=== PATIENT | female | born 2000 | race American Indian/Alaskan Native ===

== ENCOUNTER 2023-05-20 07:51 | Emergency (ER) | payer BC, MEDICAID ==
[~2023-05-20] VITALS: Ht 160 cm; Wt 63.0 kg
[2023-05-20 08:37] LABS: BASOPHILS ABSOLUTE AUTO 0.05 K/mm3 (0.00-0.23); BASOPHILS PERCENT AUTO 1 % (0-2); EOSINOPHILS ABSOLUTE AUTO 0.96 K/mm3 (0.00-0.68); EOSINOPHILS PERCENT AUTO 11 % (0-6); Hematocrit 38.2 % (33.0-51.0); Hemoglobin 12.5 g/dL (11.5-16.0); IMMATURE GRAN ABSOLUTE AUTO 0.01 K/mm3 (0.00-0.10); IMMATURE GRAN PERCENT AUTO 0 % (0-1); LYMPHOCYTES ABSOLUTE AUTO 2.21 K/mm3 (0.84-5.20); LYMPHOCYTES PERCENT AUTO 25 % (21-46); MONOCYTES ABSOLUTE AUTO 0.66 K/mm3 (0.16-1.47); MONOCYTES PERCENT AUTO 8 % (4-13); Mean Corpuscular HGB 29.1 pg (26.0-34.0); Mean Corpuscular HGB Conc 32.7 g/dL (31.5-36.5); Mean Corpuscular Volume 89 fL (80-100); Mean Platelet Volume 9.7 fL (9.1-12.4); NEUTROPHILS ABSOLUTE AUTO 4.82 K/mm3 (1.96-9.15); NEUTROPHILS PERCENT AUTO 55 % (41-73); Platelet Count 459 K/mm3 (150-400); RDW Coefficient Variation 12.8 % (11.7-14.2); RDW Standard Deviation 41.2 fL (35.1-46.3); Red Blood Cell Count 4.29 M/mm3 (3.80-5.20); White Blood Cell Count 8.71 K/mm3 (4.00-11.30)
[2023-05-20 08:44] LABS: Bun/Creatinine Ratio 17.7 (12.0-20.0); Calcium, Blood 8.9 mg/dL (8.5-10.1); Creatinine, Blood 0.68 mg/dL (0.40-1.00); Potassium, Blood 3.3 mmol/L (3.5-5.5)
[2023-05-20] MEDS ORDERED: PRAZ1 PO (08:56)
[2023-05-20] MEDS ORDERED: MIRT15 PO (08:56)
[2023-05-20] MEDS ORDERED: HYDHCL25 PO (08:57)
[2023-05-20] MEDS ORDERED: GABA300 PO (08:57)
[2023-05-20] MEDS ORDERED: MONT10T PO (08:58)
[2023-05-20] MEDS ORDERED: ATROVENT HFA12.9 GM INH (08:58)
[2023-05-20] MEDS ORDERED: ALBU90OI INH (08:58)
[2023-05-20] MEDS ORDERED: PRED20 PO (11:14)
[2023-05-20] MEDS ORDERED: BENZ100A PO (11:14)
[2023-05-20] MEDS ORDERED: AZIT250 PO (11:19)
[2023-05-20 11:32] VITALS: BP 109/72
== END 2023-05-20 11:46 | disposition home or self-care (01) ==
LOC: EDBD 07:51 → ER 07:51
PROVIDERS: Emergency Medicine
DX: J45.901 Unspecified asthma with (acute) exacerbation (principal); M79.10 Myalgia, unspecified site; E87.6 Hypokalemia; Z79.899 Other long term (current) drug therapy; Z88.1 Allergy status to other antibiotic agents; Z88.2 Allergy status to sulfonamides; Z88.6 Allergy status to analgesic agent; Z88.7 Allergy status to serum and vaccine; Z88.8 Allergy status to other drugs, medicaments and biological substances
CPT/HCPCS: 71045; 80048; 85025; 94640; 94644; 94664; 96365; 96375; 99285-25; A9270; J1100; J1885; J2060; J2405; J2930; J3475

== ENCOUNTER 2023-08-08 04:23 | Emergency (ER) | payer BC, MEDICAID ==
[~2023-08-08] VITALS: Ht 160 cm; Wt 61.2 kg
[~2023-08-08 04:23] MED LIST: ALBU90OI INH; ATROVENT HFA12.9 GM INH; AZIT250 PO; BENZ100A PO; GABA300 PO; HYDHCL25 PO; MIRT15 PO; MONT10T PO; PRAZ1 PO; PRED20 PO
[2023-08-08] MEDS ORDERED: DiphenhydrAMINE HCl 50 MG/ML 1ML Vial IV ONE (05:15)
[2023-08-08] MEDS ORDERED: NS 1,000 ML IV SCH (05:15)
[2023-08-08] MEDS ORDERED: Prochlorperazine Edisylate 10 mg Vial IV ONE (05:15)
[2023-08-08 05:26] LABS: BASOPHILS ABSOLUTE AUTO 0.04 K/mm3 (0.00-0.23); BASOPHILS PERCENT AUTO 1 % (0-2); EOSINOPHILS ABSOLUTE AUTO 0.83 K/mm3 (0.00-0.68); EOSINOPHILS PERCENT AUTO 10 % (0-6); Hematocrit 41.5 % (33.0-51.0); Hemoglobin 13.9 g/dL (11.5-16.0); IMMATURE GRAN ABSOLUTE AUTO 0.01 K/mm3 (0.00-0.10); IMMATURE GRAN PERCENT AUTO 0 % (0-1); LYMPHOCYTES ABSOLUTE AUTO 1.62 K/mm3 (0.84-5.20); LYMPHOCYTES PERCENT AUTO 20 % (21-46); MONOCYTES PERCENT AUTO 7 % (4-13); Mean Corpuscular HGB 28.6 pg (26.0-34.0); Mean Corpuscular HGB Conc 33.5 g/dL (31.5-36.5); Mean Corpuscular Volume 85 fL (80-100); Mean Platelet Volume 9.7 fL (9.1-12.4); NEUTROPHILS ABSOLUTE AUTO 5.07 K/mm3 (1.96-9.15); NEUTROPHILS PERCENT AUTO 62 % (41-73); Platelet Count 406 K/mm3 (150-400); RDW Coefficient Variation 11.9 % (11.7-14.2); RDW Standard Deviation 37.1 fL (35.1-46.3); Red Blood Cell Count 4.86 M/mm3 (3.80-5.20); White Blood Cell Count 8.17 K/mm3 (4.00-11.30)
[2023-08-08 05:40] LABS: Albumin, Blood 4.2 g/dL (3.4-5.0); Albumin/Globulin Ratio 1.1 (0.8-1.8); Bilirubin, Total 0.5 mg/dL (0.1-1.0); Bun/Creatinine Ratio 16.5 (12.0-20.0); Calcium, Blood 9.6 mg/dL (8.5-10.1); Creatinine, Blood 0.85 mg/dL (0.40-1.00); Globulin, Blood 3.7 g/dL (2.2-4.0); Potassium, Blood 4.2 mmol/L (3.5-5.5); Total Protein, Blood 7.9 g/dL (6.4-8.2)
[2023-08-08] MEDS ORDERED: LORazepam 2 MG/ML 1ML Injection IV ONE (05:55)
[2023-08-08] MEDS ORDERED: FentaNYL Citrate 50 MCG/ML 2 ML Injection IV ONE (05:55)
[2023-08-08 06:36] LABS: International Normalized Ratio 1.03; Prothrombin Time Results 10.8 Sec (9.7-11.5)
[2023-08-08 08:00] VITALS: BP 111/66
== END 2023-08-08 09:14 | disposition home or self-care (01) ==
LOC: ER 04:23
PROVIDERS: Emergency Medicine
DX: R10.13 Epigastric pain (principal); R11.2 Nausea with vomiting, unspecified; E86.0 Dehydration; J45.909 Unspecified asthma, uncomplicated; Z79.899 Other long term (current) drug therapy; Z79.52 Long term (current) use of systemic steroids; Z88.1 Allergy status to other antibiotic agents; Z88.2 Allergy status to sulfonamides; Z88.7 Allergy status to serum and vaccine; Z88.8 Allergy status to other drugs, medicaments and biological substances
CPT/HCPCS: 74174; 80053; 84703; 85025; 85610; 85730; 96361; 96374-59; 96375-59; 99284-25; J0780; J1200; J2060; J3010; J7030; Q9967

== ENCOUNTER 2023-08-19 00:07 | Emergency (ER) | payer BC, OTHER ==
[~2023-08-19] VITALS: Ht 160 cm; Wt 59.0 kg
[2023-08-19] MEDS ORDERED: CYCLOBENZAPRINE5 MG (00:46)
[2023-08-19 00:48] LABS: BASOPHILS ABSOLUTE AUTO 0.05 K/mm3 (0.00-0.23); BASOPHILS PERCENT AUTO 1 % (0-2); EOSINOPHILS ABSOLUTE AUTO 0.72 K/mm3 (0.00-0.68); EOSINOPHILS PERCENT AUTO 9 % (0-6); Hematocrit 42.7 % (33.0-51.0); Hemoglobin 14.6 g/dL (11.5-16.0); IMMATURE GRAN ABSOLUTE AUTO 0.01 K/mm3 (0.00-0.10); IMMATURE GRAN PERCENT AUTO 0 % (0-1); LYMPHOCYTES ABSOLUTE AUTO 1.78 K/mm3 (0.84-5.20); LYMPHOCYTES PERCENT AUTO 23 % (21-46); MONOCYTES ABSOLUTE AUTO 0.44 K/mm3 (0.16-1.47); MONOCYTES PERCENT AUTO 6 % (4-13); Mean Corpuscular HGB 28.7 pg (26.0-34.0); Mean Corpuscular HGB Conc 34.2 g/dL (31.5-36.5); Mean Corpuscular Volume 84 fL (80-100); Mean Platelet Volume 9.7 fL (9.1-12.4); NEUTROPHILS ABSOLUTE AUTO 4.75 K/mm3 (1.96-9.15); NEUTROPHILS PERCENT AUTO 61 % (41-73); Platelet Count 441 K/mm3 (150-400); RDW Coefficient Variation 11.9 % (11.7-14.2); RDW Standard Deviation 36.2 fL (35.1-46.3); Red Blood Cell Count 5.09 M/mm3 (3.80-5.20); White Blood Cell Count 7.75 K/mm3 (4.00-11.30)
[2023-08-19] MEDS ORDERED: Droperidol 5 mg/2 ml Vial IV ONE (01:00)
[2023-08-19] MEDS ORDERED: MAGNESIUM SULFATE IV SCH (01:00)
[2023-08-19] MEDS ORDERED: Midazolam HCl 1MG / ML 2ML Vial IV ONE (01:00)
[2023-08-19] MEDS ORDERED: Ipratropium Bromide INH 0.02% 0.5 mg/2.5ML Vial INH SCH (01:05)
[2023-08-19] MEDS ORDERED: Albuterol 2.5 MG/3 ML VIAL INH SCH ×2 (01:05→01:10)
[2023-08-19] MEDS ORDERED: Lactated Ringer's 1,000 ML IV ONE (01:05)
[2023-08-19 01:09] LABS: Albumin, Blood 4.6 g/dL (3.4-5.0); Albumin/Globulin Ratio 1.4 (0.8-1.8); Bilirubin, Total 0.5 mg/dL (0.1-1.0); Bun/Creatinine Ratio 10.4 (12.0-20.0); Calcium, Blood 9.5 mg/dL (8.5-10.1); Creatinine, Blood 0.67 mg/dL (0.40-1.00); Globulin, Blood 3.4 g/dL (2.2-4.0); Potassium, Blood 3.6 mmol/L (3.5-5.5)
[2023-08-19] MEDS ORDERED: Magnesium Sulf 2 GM/Water 50ML 50 ML IV ONE (01:10)
[2023-08-19 01:42] LABS: Base Excess Venous -5.1 mmol/L; Bicarbonate Venous 20.7 mmol/L (24.0-30.0); pH Blood Venous 7.39 (7.34-7.37)
[2023-08-19 02:48] LABS: Influenza A Negative (NEGATIVE); Influenza B Negative (NEGATIVE)
[2023-08-19 02:57] LABS: SARS-Cov-2 (COVID-19) PCR, MMC NEGATIVE (NEGATIVE)
[2023-08-19 03:00] VITALS: BP 131/73
[2023-08-19] MEDS ORDERED: PRED20 PO (03:00)
== END 2023-08-19 03:13 | disposition home or self-care (01) ==
LOC: ER 00:07
PROVIDERS: Emergency Medicine
DX: J45.901 Unspecified asthma with (acute) exacerbation (principal); F43.10 Post-traumatic stress disorder, unspecified; G43.909 Migraine, unspecified, not intractable, without status migrainosus
CPT/HCPCS: 71046; 80053; 82803; 85025; 87804; 87807; 93005; 93010; 94644; 94645; 94664; 96365; 96375; 99285-25; J1790; J2250; J3475; J7120; U0002

== ENCOUNTER 2023-08-21 22:37 | Emergency (ER) | payer BC, MEDICAID ==
[~2023-08-21] VITALS: Ht 160 cm; Wt 59.0 kg
[~2023-08-21 22:37] MED LIST changes: +CYCLOBENZAPRINE5 MG
[2023-08-21 22:51] VITALS: BP 132/92
== END 2023-08-22 00:53 | disposition home or self-care (01) ==
LOC: ER 22:37
DX: S61.211A Laceration without foreign body of left index finger without damage to nail, initial encounter (principal); J45.909 Unspecified asthma, uncomplicated; F43.10 Post-traumatic stress disorder, unspecified; G43.909 Migraine, unspecified, not intractable, without status migrainosus; Z79.899 Other long term (current) drug therapy; Z79.52 Long term (current) use of systemic steroids; Z88.1 Allergy status to other antibiotic agents; Z88.2 Allergy status to sulfonamides; Z88.7 Allergy status to serum and vaccine; Z88.8 Allergy status to other drugs, medicaments and biological substances; W26.0XXA Contact with knife, initial encounter
CPT/HCPCS: 12001; 99282-25

== ENCOUNTER 2023-11-10 20:32 | Observation (INO) | payer BC, MEDICAID ==
[~2023-11-10] VITALS: Ht 160 cm; Wt 55.4 kg
[2023-11-11 07:27] VITALS: BP 121/87
== END 2023-11-11 13:00 | disposition home or self-care (01) ==
LOC: ER 20:32 → PCU 20:33
PROVIDERS: ADMIT Student in an Organized Health Care Education/Training Program
DX: J45.901 Unspecified asthma with (acute) exacerbation (principal); K31.84 Gastroparesis; G89.4 Chronic pain syndrome; F43.10 Post-traumatic stress disorder, unspecified; G43.909 Migraine, unspecified, not intractable, without status migrainosus; J96.02 Acute respiratory failure with hypercapnia; G40.909 Epilepsy, unspecified, not intractable, without status epilepticus; Z88.5 Allergy status to narcotic agent; Z88.8 Allergy status to other drugs, medicaments and biological substances; Z88.2 Allergy status to sulfonamides; Z79.899 Other long term (current) drug therapy

== ENCOUNTER 2023-12-24 01:27 | Emergency (ER) | payer BC ==
[~2023-12-24] VITALS: Ht 162.6 cm; Wt 61.2 kg
[~2023-12-24 01:27] MED LIST changes: +ALPR.25 PO; +Celexa20 MG PO; +DELTASONE20 MG PO; +FLUTICASONE-SA1 EAC1 INH; +LEVE500 PO; +NYSTATIN100000 U10 MT; +PANT40 PO
[2023-12-24] MEDS ORDERED: Ipratropium/Albuterol SulF 2.5-0.5MG/3 ML Amp INH ONE (02:00)
[2023-12-24 02:17] LABS: BASOPHILS ABSOLUTE AUTO 0.05 K/mm3 (0.00-0.23); BASOPHILS PERCENT AUTO 0 % (0-2); EOSINOPHILS ABSOLUTE AUTO 0.65 K/mm3 (0.00-0.68); EOSINOPHILS PERCENT AUTO 6 % (0-6); Hematocrit 37.3 % (33.0-51.0); Hemoglobin 12.6 g/dL (11.5-16.0); IMMATURE GRAN ABSOLUTE AUTO 0.04 K/mm3 (0.00-0.10); IMMATURE GRAN PERCENT AUTO 0 % (0-1); LYMPHOCYTES PERCENT AUTO 18 % (21-46); MONOCYTES ABSOLUTE AUTO 1.17 K/mm3 (0.16-1.47); MONOCYTES PERCENT AUTO 10 % (4-13); Mean Corpuscular HGB 28.7 pg (26.0-34.0); Mean Corpuscular HGB Conc 33.8 g/dL (31.5-36.5); Mean Corpuscular Volume 85 fL (80-100); Mean Platelet Volume 9.6 fL (9.1-12.4); NEUTROPHILS ABSOLUTE AUTO 7.76 K/mm3 (1.96-9.15); NEUTROPHILS PERCENT AUTO 66 % (41-73); Platelet Count 352 K/mm3 (150-400); RDW Coefficient Variation 12.3 % (11.7-14.2); RDW Standard Deviation 37.9 fL (35.1-46.3); Red Blood Cell Count 4.39 M/mm3 (3.80-5.20); White Blood Cell Count 11.77 K/mm3 (4.00-11.30)
[2023-12-24] MEDS ORDERED: levETIRAcetam 750 MG in NS 100 ML IV ONE (02:20)
[2023-12-24 02:21] LABS: Albumin, Blood 3.8 g/dL (3.4-5.0); Albumin/Globulin Ratio 1.2 (0.8-1.8); Bilirubin, Total 0.3 mg/dL (0.1-1.0); Bun/Creatinine Ratio 15.8 (12.0-20.0); Creatinine, Blood 0.7 mg/dL (0.40-1.00); Globulin, Blood 3.3 g/dL (2.2-4.0); Potassium, Blood 3.5 mmol/L (3.5-5.5); Total Protein, Blood 7.1 g/dL (6.4-8.2)
[2023-12-24] MEDS ORDERED: Albuterol 2.5 MG/3 ML VIAL INH SCH (02:55)
[2023-12-24] MEDS ORDERED: Ketorolac Tromethamine 30mg Vial IV ONE (03:05)
[2023-12-24 03:59] LABS: Influenza A, PCR NEGATIVE (NEGATIVE); Influenza B, PCR NEGATIVE (NEGATIVE); Resp Syncytial Virus, PCR NEGATIVE (NEGATIVE); SARS-Cov-2 (COVID-19) PCR, MMC NEGATIVE (NEGATIVE)
[2023-12-24] MEDS ORDERED: RX Prepack Albuterol 1 PREPACK/6.7 GM INH UD ONE (04:50)
[2023-12-24 04:53] VITALS: BP 123/68
== END 2023-12-24 04:54 | disposition home or self-care (01) ==
LOC: ER 01:27
PROVIDERS: Emergency Medicine
DX: J45.901 Unspecified asthma with (acute) exacerbation (principal); R56.9 Unspecified convulsions; G43.909 Migraine, unspecified, not intractable, without status migrainosus; F43.10 Post-traumatic stress disorder, unspecified; Z88.0 Allergy status to penicillin; Z88.8 Allergy status to other drugs, medicaments and biological substances; Z88.1 Allergy status to other antibiotic agents; Z88.7 Allergy status to serum and vaccine
CPT/HCPCS: 0241U; 71046; 80053; 85025; 93005; 93010; 94640; 94644; 94664; 96374; 96375; 99285-25; J1885; J1953

== ENCOUNTER 2024-01-22 23:02 | Emergency (ER) | payer BC ==
[~2024-01-22] VITALS: Ht 160 cm; Wt 61.2 kg
[2024-01-22 23:27] VITALS: BP 142/80
[2024-01-22 23:59] LABS: BASOPHILS ABSOLUTE AUTO 0.04 K/mm3 (0.00-0.23); BASOPHILS PERCENT AUTO 0 % (0-2); EOSINOPHILS ABSOLUTE AUTO 0.68 K/mm3 (0.00-0.68); EOSINOPHILS PERCENT AUTO 7 % (0-6); Hematocrit 38.1 % (33.0-51.0); Hemoglobin 12.7 g/dL (11.5-16.0); IMMATURE GRAN ABSOLUTE AUTO 0.06 K/mm3 (0.00-0.10); IMMATURE GRAN PERCENT AUTO 1 % (0-1); LYMPHOCYTES ABSOLUTE AUTO 3.21 K/mm3 (0.84-5.20); LYMPHOCYTES PERCENT AUTO 31 % (21-46); MONOCYTES ABSOLUTE AUTO 0.63 K/mm3 (0.16-1.47); MONOCYTES PERCENT AUTO 6 % (4-13); Mean Corpuscular HGB 28.3 pg (26.0-34.0); Mean Corpuscular HGB Conc 33.3 g/dL (31.5-36.5); Mean Corpuscular Volume 85 fL (80-100); Mean Platelet Volume 9.2 fL (9.1-12.4); NEUTROPHILS ABSOLUTE AUTO 5.91 K/mm3 (1.96-9.15); NEUTROPHILS PERCENT AUTO 56 % (41-73); Platelet Count 469 K/mm3 (150-400); RDW Coefficient Variation 12.8 % (11.7-14.2); RDW Standard Deviation 38.9 fL (35.1-46.3); Red Blood Cell Count 4.49 M/mm3 (3.80-5.20); White Blood Cell Count 10.53 K/mm3 (4.00-11.30)
[2024-01-23 00:16] LABS: Source, Urine Clean Catch
[2024-01-23 00:19] LABS: Albumin, Blood 3.7 g/dL (3.4-5.0); Albumin/Globulin Ratio 1.1 (0.8-1.8); Bilirubin, Total 0.2 mg/dL (0.1-1.0); Bun/Creatinine Ratio 16.4 (12.0-20.0); Creatinine, Blood 0.73 mg/dL (0.40-1.00); Globulin, Blood 3.3 g/dL (2.2-4.0); Potassium, Blood 3.9 mmol/L (3.5-5.5)
[2024-01-23 00:27] LABS: Appearance, Urine Clear (Clear); Bilirubin, Urine Neg (Neg); Blood, Urine Neg (Neg); Color, Urine Yellow (P-Yellow); Glucose Qualitative, Urine Neg (Neg); Ketones, Urine Neg (Neg); Leukocyte Esterase, Urine Neg (Neg); Nitrite, Urine Neg (Neg); Protein, Urine Neg (Neg); Urobilinogen, Urine NORM (Normal)
[2024-01-23] MEDS ORDERED: Ketorolac Tromethamine 15mg Vial IV ONE (00:50)
[2024-01-23] MEDS ORDERED: Lidocaine 2% Viscous Soln 15 ML UDC PO ONE (01:15)
[2024-01-23] MEDS ORDERED: Mag Hydrox/AL Hydrox/Simeth 30 ML UDC PO ONE (01:15)
[2024-01-23] MEDS ORDERED: Protonix40 MG PO (01:18)
[2024-01-23] MEDS ORDERED: DICY20 PO (01:18)
== END 2024-01-23 01:28 | disposition home or self-care (01) ==
LOC: ER 23:02
PROVIDERS: Emergency Medicine
DX: R11.2 Nausea with vomiting, unspecified (principal); R19.7 Diarrhea, unspecified; J45.909 Unspecified asthma, uncomplicated; F43.10 Post-traumatic stress disorder, unspecified; G43.909 Migraine, unspecified, not intractable, without status migrainosus; Z79.899 Other long term (current) drug therapy; Z79.52 Long term (current) use of systemic steroids; Z79.51 Long term (current) use of inhaled steroids; Z88.2 Allergy status to sulfonamides; Z88.1 Allergy status to other antibiotic agents; Z88.8 Allergy status to other drugs, medicaments and biological substances; Z88.7 Allergy status to serum and vaccine
CPT/HCPCS: 76705; 80053; 81003; 81025; 83690; 85025; 99284-25